=== PATIENT | female | born 1970 | race Caucasian/White ===

== ENCOUNTER 2017-03-31 11:02 | Emergency (ER) | payer BC ==
[2017-03-31 11:55] VITALS: BP 163/95
--- NOTE | 2017-03-31 12:29 | UC ---
Respiratory Complaint HPI - HPI Summary HPI Summary: 46 yo WF smoker c/o productive cough x 1 week no f/c but gradually worsening - History of Current Complaint Chief Complaint: UCGeneralIllness Stated Complaint: COUGH Time Seen by Provider: 03/31/17 11:46 Hx Obtained From: Patient Hx Last Menstrual Period: ENDOMETRIAL ABLATION Onset/Duration: Lasting Days, Lasting Weeks Timing: Constant Severity Initially: Moderate Severity Currently: Moderate Character: Cough: Productive, Sputum Description: - white Aggravating Factors: Deep Breaths Associated Signs And Symptoms: Positive: Negative. Negative: Dyspnea, Fever, Chills, Pleuritic Chest Pain - Allergies/Home Medications Allergies/Adverse Reactions: Allergies Allergy/AdvReac Type Severity Reaction Status Date / Time No Known Allergies Allergy Verified 03/31/17 11:48 PMH/Surg Hx/FS Hx/Imm Hx Previously Healthy: Yes Other History Of: Negative For: HIV, Hepatitis B, Hepatitis C - Surgical History Surgical History: Yes Surgery Procedure, Year, and Place: LUMBAR FUSION 2006 [facility]. eye surgery at age 15 for detached retina. BILAT SALPINGETOMY 2003 [facility] [place]. RIGHT OOPHERECTOMY [facility]. RIGHT hand surgery x2. Ablation - Family History Known Family History: Positive: Other - Pt denies family history of cardiac, renal disease. Pos colon cancer. Negative: Cardiac Disease, Renal Disease - Social History Alcohol Use: None Substance Use Type: None Substance Use Comment - Amount & Last Used: PT ON SUBOXONE Smoking Status (MU): Current Every Day Smoker Type: Cigarettes Amount Used/How Often: 1 ppd Length of Time of Smoking/Using Tobacco: 20 YRS Have You Smoked in the Last Year: Yes When Did the Patient Quit Smoking/Using Tobacco: 09/08 Review of Systems Constitutional: Negative Skin: Negative Eyes: Negative ENT: Negative Respiratory: Cough Cardiovascular: Negative Gastrointestinal: Negative Genitourinary: Negative Motor: Negative Neurovascular: Negative Musculoskeletal: Negative Neurological: Negative Psychological: Negative All Other Systems Reviewed And Are Negative: Yes Physical Exam Triage Information Reviewed: Yes Appearance: Well-Appearing Vital Signs: Initial Vital Signs Temp 36.9 C 03/31/17 11:50 Pulse 61 03/31/17 11:50 Resp 20 03/31/17 11:50 BP 163/95 03/31/17 11:50 Pulse Ox 97 03/31/17 11:50 Eye Exam: Normal ENT: Positive: Pharynx normal Dental Exam: Normal Neck exam: Normal Neck: Positive: 1 Respiratory: Positive: Rhonchi, Wheezing, Expiration, Inspiration Cardiovascular Exam: Normal Abdominal Exam: Normal Musculoskeletal Exam: Normal Neurological Exam: Normal Psychological Exam: Normal Skin Exam: Normal UC Diagnostic Evaluation - Laboratory O2 Sat by Pulse Oximetry: 97 Respiratory Course/Dx - Differential Dx/Diagnosis Provider Diagnoses: bronchitis Discharge - Discharge Plan Condition: Stable Disposition: HOME Prescriptions: Azithromyxin TRACE (NF) [Z-Trace (Zithromax) 250 mg tabs #6] 2 tab PO .TODAY, THEN 1 DAILY #6 tab Benzonatate CAP* [Tessalon 100 MG CAP*] 100 mg PO TID 7 Days #21 cap predniSONE TAB* [Deltasone TAB*] 10 mg PO DAILY 5 Days #5 tab Patient Education Materials: Acute Bronchitis (ED) Referrals: Ashley Martin MD [Primary Care Provider] - Additional Instructions: as tolerated
== END 2017-03-31 12:37 | disposition home or self-care (01) ==
LOC: UCEAST 11:02
DX: J40 Bronchitis, not specified as acute or chronic (principal); F17.210 Nicotine dependence, cigarettes, uncomplicated
CPT/HCPCS: 99212; G0463

== ENCOUNTER 2017-12-16 10:50 | Emergency (ER) | payer BC ==
[2017-12-16 12:06] VITALS: BP 156/93
--- NOTE | 2017-12-16 12:41 | UC ---
Respiratory Complaint HPI - HPI Summary HPI Summary: 47-year-old female presents with progressively worsening productive cough for yellow sputum over the past week. Associated with mild headache, nasal congestion and discharge. Denies fever, chills, ear pain, sore throat, chest pain, shortness of breath, abdominal pain, nausea, or vomiting. States she has a history of frequent bronchitis with reactive airway disease. Has needed prednisone and inhaler in the past. She is a one pack per day smoker for almost 30 years. - History of Current Complaint Chief Complaint: UCRespiratory Stated Complaint: SORE THROAT,COUGH,CONGESTION Time Seen by Provider: 12/16/17 12:16 Hx Obtained From: Patient Hx Last Menstrual Period: ENDOMETRIAL ABLATION ?: No Onset/Duration: Gradual Onset, Lasting Days - 7 Severity Initially: Mild Severity Currently: Moderate Pain Intensity: 2 Aggravating Factors: Recumbent Position Alleviating Factors: Nothing Associated Signs And Symptoms: Positive: URI, Nasal Congestion. Negative: Dyspnea, Fever, Chills, Pleuritic Chest Pain, Wheezing, Hemoptysis, Sinus Discomfort - Allergies/Home Medications Allergies/Adverse Reactions: Allergies Allergy/AdvReac Type Severity Reaction Status Date / Time No Known Allergies Allergy Verified 12/16/17 12:06 PMH/Surg Hx/FS Hx/Imm Hx Previously Healthy: Yes GI/ History: Gastroesophageal Reflux Psychological History: Anxiety, Depression Other Psychological History: substance abuse disorder Other History Of: Negative For: HIV, Hepatitis B, Hepatitis C - Surgical History Surgical History: Yes Surgery Procedure, Year, and Place: LUMBAR FUSION 2006 [facility]. eye surgery at age 15 for detached retina. BILAT [place] [facility] [place] RIGHT O[facility]CTOMY 2007 [facility]. RIGHT hand surgery x2. Ablation - Family History Known Family History: Positive: Other - Pt denies family history of cardiac, renal disease. Pos colon cancer. Negative: Cardiac Disease, Renal Disease Family History: Noncontributory - Social History Occupation: Employed Full-time Lives: With Family Alcohol Use: Rare Substance Use Type: None Substance Use Comment - Amount & Last Used: PT ON SUBOXONE Smoking Status (MU): Heavy Every Day Tobacco Smoker Type: Cigarettes Amount Used/How Often: 1 ppd Length of Time of Smoking/Using Tobacco: 20 YRS Have You Smoked in the Last Year: Yes When Did the Patient Quit Smoking/Using Tobacco: 09/08 Review of Systems Constitutional: Fatigue Skin: Negative Eyes: Negative ENT: Nasal Discharge Respiratory: Cough Cardiovascular: Negative Gastrointestinal: Negative Is Patient Immunocompromised?: No All Other Systems Reviewed And Are Negative: Yes Physical Exam Triage Information Reviewed: Yes Appearance: Well-Appearing, No Pain Distress, Well-Nourished Vital Signs: Initial Vital Signs Temp 97.0 F 12/16/17 12:03 Pulse 112 12/16/17 12:03 Resp 18 12/16/17 12:03 BP 156/93 12/16/17 12:03 Pulse Ox 98 12/16/17 12:03 Vital Signs Reviewed: Yes Eyes: Positive: Conjunctiva Clear. Negative: Discharge ENT: Positive: Pharyngeal erythema - Mild, Nasal congestion, Nasal drainage, Uvula midline. Negative: Tonsillar swelling, Tonsillar exudate, Sinus tenderness Neck: Positive: Supple, Nontender, No Lymphadenopathy Respiratory: Positive: Lungs clear, Normal breath sounds, No respiratory distress Cardiovascular: Positive: RRR, No Murmur Neurological: Positive: Alert Skin Exam: Normal UC Diagnostic Evaluation - Laboratory O2 Sat by Pulse Oximetry: 98 Respiratory Course/Dx - Course Course Of Treatment: 47 year old female, heavy smoker, with history of recurrent bronchitis with RAD presents with 1 week of prodcutive cough. Afebrile and her lungs were clear on exam however with her history have chosen to treat with azithromycin as well as symptomatic treatment. She is to f/u with her PCP within 2 weeks for recheck. - Differential Dx/Diagnosis Differential Diagnosis/HQI/PQRI: Bronchitis, Lower Resp Infection, Sinusitis Provider Diagnoses: Acute bronchitis Discharge - Sign-Out/Discharge Documenting (check all that apply): Patient Departure All imaging exams completed and their final reports reviewed: No Studies - Discharge Plan Condition: Stable Disposition: HOME Prescriptions: Azithromyxin TRACE (NF) [Z-Trace (Zithromax) 250 mg tabs #6] 2 tab PO .TODAY, THEN 1 DAILY #6 tab Benzonatate CAP* [Tessalon 100 MG CAP*] 100 mg PO TID PRN #30 cap PRN Reason: Cough Patient Education Materials: Acute Bronchitis (ED) Referrals: Ashley Martin MD [Primary Care Provider] - 2 Weeks () Additional Instructions: Start taking the Z-Trace according to directions. Use Tessalon Perles one Every 8 hours as needed for cough. Be sure you're getting plenty of fluids to avoid dehydration. Take acetaminophen (Tylenol) or ibuprofen (Advil, Motrin) according to directions as needed for any pain or fever. X It is advised that she stop smoking as this will worsen your symptoms. Your blood pressure in the office today was elevated. Follow-up with your primary care provider in 2 weeks or sooner if no improvement in symptoms. Seek immediate medical attention if you develop a persistent fever greater than 100.5 F despite taking acetaminophen or ibuprofen, develop chest pain, shortness of breath, or have any worsening of symptoms. - Billing Disposition and Condition Condition: STABLE Disposition: Home
== END 2017-12-16 13:02 | disposition home or self-care (01) ==
LOC: UCEAST 10:50
DX: J20.9 Acute bronchitis, unspecified (principal); F17.210 Nicotine dependence, cigarettes, uncomplicated
CPT/HCPCS: 99212; G0463

== ENCOUNTER 2018-11-02 10:31 | Emergency (ER) | payer BC ==
--- OUTSIDE RECORDS SUMMARY | 2018-11-02 10:56 | XMS REPORT | Continuity of Care Document ---
:1970 External Reference #:[id number] Author Name Ashley Felix MD Address [address] [place] [address] Care Team Providers Name Role Phone Ashley Felix MD Care Team Information Ultrasound Spec Unavailable Payers Date Identification Numbers Payment Provider Subscriber Effective: 2012 Policy Number: [id number] [employer] Candis Jones PayID: [id number] [address] [address] [place] [address] Problems Active Problems Provider Date Peptic reflux disease Ashley Felix MD Onset: 11/23/2015 Moderate recurrent major depression Ashley Felix MD Onset: 07/13/2016 Opioid dependence in remission Ashley Felix MD Onset: 07/13/2016 Social History Type Date Description Comments Sex Unknown 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 Tobacco Use Start: Unknown Patient is a current smoker, smokes every day Smoking Status Reviewed: 08/08/17 Patient is a current smoker, smokes every day Allergies, Adverse Reactions, Alerts Description No Known Drug Allergies Medications Active Medications SIG Qnty Indications Ordering Date Provider Bupropion take 1 tablet by 30tabs F33.1 Isidro, 06/04/2018 Hydrochloride ER (XL) mouth once daily Ashley Velez MD 300mg Tablets ER 24HR Amlodipine Besylate Take 1 Tablet By 30tabs I10 Isidro, 05/14/2018 5mg Mouth Once Daily Ashley Velez MD Tablets Escitalopram Oxalate take 1 tablet by 30tabs F33.1 Isidro, 04/10/2018 mouth once daily Ashley Velez MD 20mg Tablets Ventolin HFA inhale 2 puffs by 8gm R05 Isidro, 11/13/2017 mouth 4 times Ashley Velez MD 108(90Base) mcg/Act daily as needed Aerosol Omeprazole 1 by mouth every 30caps K21.0 [facility], 02/14/2017 20mg day Ashley Velez MD Capsules DR Sumatriptan Succinate Take 1 Tablet By 9tabs R51 [facility], 02/14/2017 Mouth AT Earliest Ashley Velez MD 50mg Tablets Headache Onset May Repeat 1 More After 2 Hours Narcan as needed 2units F11.21 [facility], 07/13/2016 4mg/0.1ML Liquid intranasal for Ashley Velez MD emergency overdose only Tizanidine HCL take 1 to 2 90tabs M54.5 [facility], 07/13/2016 2mg tablets by mouth Ashley Velez MD Tablets three times a day as needed Chantix Continuing use as directed on 56tabs F17.210 [facility], 02/29/2016 Month Emeterio package Ashley Velez MD 1mg Tablets Suboxone 1 sl twice a day 60units F11.21 Yessica Willis 11/23/2015 8-2mg Film egnia: 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, 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 Medications Azithromycin 2 tabs day one and 6tabs J18.0 [facility], 06/04/2018 - 250mg 1 tab daily till Ashley Velez MD 07/03/2018 Tablets gone Prednisone 2 every in the 10tabs J18.0 [facility], 06/04/2018 - 20mg Tablets morning x 5 d Ashley Velez MD 07/03/2018 Benzonatate 1 by mouth three 14caps 18.0 [facility], 06/04/2018 - 100mg times a day as Ashley Velez MD 07/03/2018 Capsules needed cough Work Note pl excuse from J18.0 [facility], 06/04/2018 - work 06/05, 06/06/18 Ashley Velez MD 07/03/2018 Prednisone 2 every in the 10tabs R05 [facility], 11/13/2017 - 20mg Tablets morning x 5 d Ashley Velez MD 02/06/2018 Amoxicillin 1 by mouth twice a 28tabs J01.00 Yessica Willis 07/05/2017 - 875mg day C, RN MS [employer] SUPPORT TE[employer] 08/04/2017 Tablets Alprazolam 1/2-2 three times 10tabs Isidro, 05/22/2017 - 0.25mg a day as needed Ashley Velez MD 07/03/2018 Tablets anxiety for flying Nystatin swish and swallow 60ml Isidro, 05/05/2017 - [id number] 1 teapsoonful (5 Ashley Velez MD 08/08/2017 Suspension mls) two times a day Prednisone 4tabs qam x 3 days 30tabs R0Trav Felix, 04/28/2017 - 10mg Tablets then 3 po qam x 3d Ashley Velez MD 05/05/2017 then 2 po qam x 3d then 1 po qam x 3 d Benzonatate 1 by mouth three 30caps Trav Felix, 04/28/2017 - 100mg times a day as Ashley Velez MD 08/08/2017 Capsules needed cough Proair Respiclick 2 p four times a 1units Trav Felix, 04/28/2017 - day as needed Ashley Velez MD 11/13/2017 108(90Base) mcg/Act Aerosol Azithromycin 2 tabs day one and 6tabs Isidro, 11/18/2016 - 250mg 1 tab daily till Ashley Velez MD 02/14/2017 Tablets gone Bupropion HCL ER (XL) take 1 tablet by 30tabs F33.1 Isidro, 08/02/2016 - mouth once daily Ashley Velez MD 06/04/2018 300mg Tablets ER 24HR Baclofen 1-2 po qhs 30tabs M54.5 Isidro, 04/25/2016 - 10mg Tablets Ashley Velez MD 07/13/2016 Nystatin 5 ml swish and 60ml Isidro, 02/12/2016 - [id number]/ML swallow qid x 1 wk Ashley Velez MD 04/13/2016 Suspension Azithromycin z-pack x 5 days 5tabs J02.9 Isidro, 02/10/2016 - 250mg Ashley Velez MD 04/13/2016 Tablets Nystatin B37.0 Isidro, 02/08/2016 - [id number]/ML Ashley Velez MD 02/12/2016 Suspension Ciprofloxacin HCL 1 by mouth twice a 14tabs Isidro, 12/03/2015 - 500mg day Ashley Velez MD 02/08/2016 Tablets Wellbutrin XL 1 by mouth every 30tabs F33.1 Isidro 11/23/2015 - 300mg day Ashley Velez MD 08/02/2016 Tablets ER 24HR Omeprazole 1 by mouth every 30caps K21.0 [facility], 11/23/2015 - 40mg day Ashley Velez MD 02/14/[address] Pham 1 by mouth every 30tabs F33.1 [facility], 11/23/2015 - 20mg Tablets day Ashley Velez MD 04/10/2018 Medications Administered in Office Medication SIG Qnty Indications Ordering Provider Date PPD Injection Faustina Loera PA 02/10/2016 Immunizations CPT Code Status Date Vaccine Lot # [id number] Given 02/06/2018 Tdap (Adacel) Ages 7 And Above Only [id number] Given 12/14/2017 Influenza Vac, Quadrivalent, Split, 0.5mL Dosage, Im Use 49809 Given 12/10/2017 Influenza Vac, Quadrivalent, Split, 0.5mL Dosage, Im Use 66300 Given 12/19/2016 Influenza Vac, Quadrivalent, Split, 0.5mL Dosage, Im Use 77911 Given 02/07/2016 Influenza Vac, Quadrivalent, Split, 0.5mL Dosage, Im Use 01124 Given 03/27/2007 Tetanus And Diptheria Toxoids For Adult Use-preservative free Vital Signs Date Vital Result Comment 10/15/2018 3:49pm Weight 160.00 lb Heart Rate 76 /min BP Systolic 130 mmHg BP Diastolic 78 mmHg Height 66 inches 5'6" BMI (Body Mass Index) 25.8 kg/m2 07/03/2018 3:52pm Weight 164.00 lb Heart Rate 64 /min BP Systolic 122 mmHg BP Diastolic 80 mmHg Height 66 inches 5'6" BMI (Body Mass Index) 26.5 kg/m2 06/04/2018 3:41pm Body Temperature 98.6 F Weight 162.00 lb Heart Rate 72 /min BP Systolic 142 mmHg BP Diastolic 84 mmHg Height 66 inches 5'6" BMI (Body Mass Index) 26.1 kg/m2 05/14/2018 10:36am Weight 158.00 lb Heart Rate 84 /min BP Systolic 168 mmHg Reg Cuff BP Diastolic 104 mmHg Reg Cuff BP Systolic Recheck 154 mmHg LG Cuff BP Diastolic Recheck 96 mmHg LG Cuff Height 66 inches 5'6" BMI (Body Mass Index) 25.5 kg/m2 02/06/2018 3:59pm Weight 165.00 lb Heart Rate 84 /min BP Systolic 144 mmHg BP Diastolic 94 mmHg BP Systolic Recheck 134 mmHg BP Diastolic Recheck 88 mmHg Height 66 inches 5'6" BMI (Body Mass Index) 26.6 kg/m2 11/13/2017 3:19pm Body Temperature 99.2 F Weight 177.00 lb Heart Rate 60 /min BP Systolic 128 mmHg BP Diastolic 72 mmHg Height 66 inches 5'6" BMI (Body Mass Index) 28.6 kg/m2 08/08/2017 4:07pm Weight 175.25 lb Heart Rate 59 /min BP Systolic 157 mmHg BP Diastolic 84 mmHg BP Systolic Recheck 140 mmHg BP Diastolic Recheck 78 mmHg Height 66 inches 5'6" BMI (Body Mass Index) 28.3 kg/m2 07/05/2017 4:05pm Weight 180.12 lb Heart Rate 57 /min BP Systolic 142 mmHg BP Diastolic 84 mmHg Height 66 inches 5'6" BMI (Body Mass Index) 29.1 kg/m2 04/28/2017 8:19am Weight 172.00 lb Heart Rate 60 /min BP Systolic 130 mmHg BP Diastolic 80 mmHg Height 66 inches 5'6" BMI (Body Mass Index) 27.8 kg/m2 02/14/2017 3:20pm Weight 172.00 lb Heart Rate 60 /min BP Systolic 126 mmHg BP Diastolic 66 mmHg Height 66 inches 5'6" BMI (Body Mass Index) 27.8 kg/m2 11/14/2016 3:27pm Weight 170.00 lb Heart Rate 80 /min BP Systolic 150 mmHg BP Diastolic 96 mmHg BP Systolic Recheck 138 mmHg BP Diastolic Recheck 90 mmHg Height 66 inches 5'6" BMI (Body Mass Index) 27.4 kg/m2 09/02/2016 1:15pm Weight 171.00 lb Heart Rate 76 /min BP Systolic 148 mmHg BP Diastolic 88 mmHg Height 66 inches 5'6" BMI (Body Mass Index) 27.6 kg/m2 07/13/2016 9:24am Weight 168.00 lb Heart Rate 68 /min BP Systolic 140 mmHg BP Diastolic 84 mmHg Height 66 inches 5'6" BMI (Body Mass Index) 27.1 kg/m2 04/13/2016 9:12am Weight 162.00 lb Heart Rate 68 /min BP Systolic 120 mmHg BP Diastolic 72 mmHg Height 66 inches 5'6" BMI (Body Mass Index) 26.1 kg/m2 02/10/2016 2:21pm Body Temperature 97.9 F Weight 168.00 lb Heart Rate 80 /min BP Systolic 116 mmHg BP Diastolic 70 mmHg Height 66 inches 5'6" BMI (Body Mass Index) 27.1 kg/m2 02/08/2016 9:44am Weight 167.00 lb Heart Rate 68 /min BP Systolic 108 mmHg BP Diastolic 66 mmHg Height 66 inches 5'6" BMI (Body Mass Index) 27.0 kg/m2 11/23/2015 4:01pm Weight 178.00 lb Heart Rate 64 /min BP Systolic 128 mmHg BP Diastolic 80 mmHg Height 66 inches 5'6" BMI (Body Mass Index) 28.7 kg/m2 Results Test Date Facility Test Result H/L Range Note Laboratory test 06/04/2018 Done In [facility] 1 Rapid Flu NEG FOR A finding Test (In AND B House) Basic (BMP) 05/14/2018 [facility] Sodium 141 mmol/L 135-146 1, 2 Potassium 3.8 mmol/L 3.5-5.2 Chloride# 107 mmol/L 97-110 3 Carbon Dioxide 26 mmol/L 24-34 Glucose 98 mg/dL 70-105 BUN 16 mg/dL 6-26 Creatinine 1.1 mg/dL 0.5-1.4 Calcium 9.5 mg/dL 8.5-10.2 Non Nevaeh Egfr 53 Low >60 4 Nevaeh Egfr >60 >60 5 Anion Gap 8 mmol/L 5-15 6 Lipid Treatment 05/14/2018 [facility] Cholesterol 174 mg/dL 50-199 Triglycerides 78 mg/dL 30-200 HDL 51 mg/dL 35-85 7 Chol/ HDL Ratio 3.4 ratio Low 3.7-5.6 VLDL 16 mg/dL 2-29 LDL (Calc) 107 mg/dL High 20-99 8 Alt 17 U/L 3-42 Ast 19 U/L 8-42 Drugs Of 02/06/2018 [facility] Amphetamines,Urine NEGATIVE <1000 ng/mL Abuse,Urine-FCMG Barbiturates,Urine NEGATIVE <200 ng/mL Benzodiazepines, Urine NEGATIVE <200 ng/mL Bupernorphrine/Norbu,Urine POSITIVE Abnormal <10 ng/mL Cocaine Metabolites,Urine NEGATIVE <300 ng/mL Methadone,Urine NEGATIVE <300 ng/mL Opiates,Urine NEGATIVE <300 ng/mL Oxycodone,Urine NEGATIVE <100 ng/mL Phencyclidine,Urine NEGATIVE <25 ng/mL Cannabinoids,Urine NEGATIVE <50 ng/mL Drugs Of 11/13/2017 [facility] Amphetamines,Urine NEGATIVE <1000 ng/mL Abuse,Urine-FCMG Barbiturates,Urine NEGATIVE <200 ng/mL Benzodiazepines, Urine NEGATIVE <200 ng/mL Bupernorphrine/Norbu,Urine POSITIVE Abnormal <10 ng/mL Cocaine Metabolites,Urine NEGATIVE <300 ng/mL Methadone,Urine NEGATIVE <300 ng/mL Opiates,Urine NEGATIVE <300 ng/mL Oxycodone,Urine NEGATIVE <100 ng/mL Phencyclidine,Urine NEGATIVE <25 ng/mL Cannabinoids,Urine NEGATIVE <50 ng/mL CBC With Auto Diff 04/28/2017 [facility] WBC 15.5 K/uL High 4.1-11.0 RBC 3.89 M/uL Low 4.00-5.40 Hemoglobin 12.4 gm/dL 12.0-16.0 Hematocrit 36.9 % 36.0-47.0 MCV 95.0 fL 80.0-97.0 MCH 32.0 pg 27.0-32.0 MCHC 33.7 g/dL 32.0-36.0 RDW 13.3 % 11.5-14.5 PLT Count 187 K/ul 140-400 MPV 10.3 FL 7.1-10.7 Neutrophil 81.2 % High 35.0-75.0 Lymphocyte 8.4 % Low 16.0-52.0 Monocyte 8.3 % 2.0-10.0 Eosinophil 1.6 % 0.0-5.0 Basophil 0.5 % 0.0-4.0 Abs Neutrophils 12.6 K/uL High 2.1-8.0 Abs Lymphocytes 1.3 K/uL 0.8-5.5 Abs Monocytes 1.3 K/uL High 0.1-1.0 Abs Eosinophils 0.2 K/uL 0.0-0.5 Abs Basophils 0.1 K/uL 0.0-0.3 Iron Panel 04/28/2017 [facility] Iron, Total 16 g/dL Low 50-170 Transferrin 223.0 mg/dL 203.0-362.0 Tibc (calc) 312 g/dL 261-478 % Iron Saturation 5.1 % Low 13.0-45.0 Drugs Of 04/28/2017 [facility] Amphetamines,Urine NEGATIVE <1000 ng/mL Abuse,Urine-FCMG Barbiturates,Urine NEGATIVE <200 ng/mL Benzodiazepines, Urine NEGATIVE <200 ng/mL Bupernorphrine/Norbu,Urine POSITIVE Abnormal <10 ng/mL Cocaine Metabolites,Urine NEGATIVE <300 ng/mL Methadone,Urine NEGATIVE <300 ng/mL Opiates,Urine NEGATIVE <300 ng/mL Oxycodone,Urine NEGATIVE <100 ng/mL Phencyclidine,Urine NEGATIVE <25 ng/mL Cannabinoids,Urine NEGATIVE <50 ng/mL Drugs Of 11/15/2016 [facility] Amphetamines,Urine Negative <1000 ng/mL Abuse,Urine-FCMG Barbiturates,Urine Negative <200 ng/mL Benzodiazepines, Urine Negative <200 ng/mL Bupernorphrine/Norbu,Urine Positive Abnormal <10 ng/mL Cocaine Metabolites,Urine Negative <300 ng/mL Methadone,Urine Negative <300 ng/mL Opiates,Urine Negative <300 ng/mL Oxycodone,Urine Negative <100 ng/mL Phencyclidine,Urine Negative <25 ng/mL Cannabinoids,Urine Negative <50 ng/mL Drugs Of 07/13/2016 [facility] Amphetamines,Urine Negative <1000 ng/mL Abuse,Urine-FCMG Barbiturates,Urine Negative <200 ng/mL Benzodiazepines, Urine Negative <200 ng/mL Bupernorphrine/Norbu,Urine Positive <10 ng/mL Cocaine Metabolites,Urine Negative <300 ng/mL Methadone,Urine Negative <300 ng/mL Opiates,Urine Negative <300 ng/mL Oxycodone,Urine Negative <100 ng/mL Phencyclidine,Urine Negative <25 ng/mL Cannabinoids,Urine Negative <50 ng/mL Comprehensive Metabolic (CMP) 07/13/2016 [facility] Sodium 142 mmol/L 135- 146 9 Potassium 3.6 mmol/L 3.5-5.2 Chloride# 109 mmol/L 97-110 10 Carbon Dioxide 23 mmol/L Low 24-34 Glucose 87 mg/dL 70-105 BUN 15 mg/dL 6-26 Creatinine 1.3 mg/dL 0.5-1.4 Calcium 9.1 mg/dL 8.5-10.2 Total Protein 6.2 g/dL 6.0-8.0 Albumin 3.9 g/dL 3.6-4.9 Globulin 2.3 g/dL 2.0-3.5 A/G Ratio 1.7 Ratio 1.0-2.2 Total Bilirubin 0.3 mg/dL 0.1-1.3 Alkaline Phosphatase 72 U/L 24-140 Alt 15 U/L 3-42 Ast 19 U/L 8-42 Nevaeh Egfr 56 Low >60 11 Non Nevaeh Egfr 46 Low >60 12 Anion Gap 14 mmol/L 7-16 13 Iron Panel 07/13/2016 [facility] Iron, Total 6 g/dL Low 50-170 Transferrin 200.0 mg/dL Low 203.0-362.0 Tibc (calc) 280 g/dL 261-478 % Iron Saturation 2.1 % Low 13.0-45.0 CBC With Auto Diff 07/13/2016 [facility] WBC 16.6 K/uL High 4.1-11.0 RBC 3.95 M/uL Low 4.00-5.40 Hemoglobin 11.9 gm/dL Low 12.0-16.0 Hematocrit 36.6 % 36.0-47.0 MCV 92.6 fL 80.0-97.0 MCH 30.2 pg 27.0-32.0 MCHC 32.6 g/dL 32.0-36.0 RDW 15.0 % High 11.5-14.5 PLT Count 150 K/ul 140-400 Neutrophil 84.4 % High 35.0-75.0 Lymphocyte 7.2 % Low 16.0-52.0 Monocyte 7.4 % 2.0-10.0 Eosinophil 0.6 % 0.0-5.0 Basophil 0.4 % 0.0-4.0 Abs Neutrophils 14.0 K/uL High 2.1-8.0 Abs Lymphocytes 1.2 K/uL 0.8-5.5 Abs Monocytes 1.2 K/uL High 0.1-1.0 Abs Eosinophils 0.1 K/uL 0.0-0.5 Abs Basophils 0.1 K/uL 0.0-0.3 Comprehensive Metabolic (CMP) 04/13/2016 [facility] Sodium 138 mmol/L 134- 142 Potassium 3.0 mmol/L Low 3.5-5.2 Chloride 106 mmol/L 97-109 Carbon Dioxide 27 mmol/L 24-34 Glucose 89 mg/dL 70-105 BUN 10 mg/dL 6-26 Creatinine 1.2 mg/dL 0.5-1.4 Calcium 8.8 mg/dL 8.5-10.2 Total Protein 6.4 g/dL 6.0-8.0 Albumin 3.6 g/dL 3.6-4.9 Globulin 2.8 g/dL 2.0-3.5 A/G Ratio 1.3 Ratio 1.0-2.2 Total Bilirubin 0.3 mg/dL 0.1-1.3 Alkaline Phosphatase 69 U/L 24-140 Alt 12 U/L 3-42 Ast 13 U/L 8-42 Anion Gap 8 mmol/L 6-14 Nevaeh Egfr 58 Low >60 14 Non Nevaeh Egfr 48 Low >60 15 Iron Panel 04/13/2016 [facility] Iron, Total 1 g/dL Low 50-170 Transferrin 160.6 mg/dL Low 203.0-362.0 Tibc (calc) 225 g/dL Low 261-478 % Iron Saturation 0.4 % Low 13.0-45.0 Laboratory test finding 04/13/2016 [facility] Ferritin 125.3 ng/ml 11.0- 306.0 CBC With Auto Diff 04/13/2016 [facility] WBC 12.8 K/uL High 4.1-11.0 RBC 3.73 M/uL Low 4.00-5.40 Hemoglobin 10.8 gm/dL Low 12.0-16.0 Hematocrit 33.5 % Low 36.0-47.0 MCV 90.0 fL 80.0-97.0 MCH 28.9 pg 27.0-32.0 MCHC 32.1 g/dL 32.0-36.0 RDW 19.8 % High 11.5-14.5 PLT Count 200 K/ul 140-400 Neutrophil 71.6 % 35.0-75.0 Lymphocyte 16.4 % 16.0-52.0 Monocyte 9.6 % 2.0-10.0 Eosinophil 1.6 % 0.0-5.0 Basophil 0.8 % 0.0-4.0 Abs Neutrophils 9.2 K/uL High 2.1-8.0 Abs Lymphocytes 2.1 K/uL 0.8-5.5 Abs Monocytes 1.2 K/uL High 0.1-1.0 Abs Eosinophils 0.2 K/uL 0.0-0.5 Abs Basophils 0.1 K/uL 0.0-0.3 Drugs Of 02/08/2016 [facility] Amphetamines,Urine Negative <1000 ng/mL Abuse,Urine-FCMG Barbiturates,Urine Negative <200 ng/mL Benzodiazepines, Urine Negative <200 ng/mL Bupernorphrine/Norbu,Urine Positive <10 ng/mL Cocaine Metabolites,Urine Negative <300 ng/mL Methadone,Urine Negative <300 ng/mL Opiates,Urine Negative <300 ng/mL Oxycodone,Urine Negative <100 ng/mL Phencyclidine,Urine Negative <25 ng/mL Cannabinoids,Urine Negative <50 ng/mL Laboratory test finding 02/08/2016 [facility] Vitamin B12 >1500 pg/mL High 180-914 Iron Panel 02/08/2016 [facility] Iron, Total 5 g/dL Low 50-170 Transferrin 118.4 mg/dL Low 203.0-362.0 Tibc (calc) 166 g/dL Low 261-478 % Iron Saturation 3.0 % Low 13.0-45.0 Manual Differential 02/08/2016 [facility] Neutrophils 89 % High 35-75 Lymphocytes 9 % Low 16-52 Monocytes 1 % 0-8 Eosinophils 1 % 0-5 Basophils 0 % 0-4 Platelet Estimate Slighty Increase <SEE NOTE> Abnormal Normal 16 RBC Morphology Abnormal Abnormal Normal Anisocytosis 1+ Abnormal None Seen Macrocytosis 1+ Abnormal None Seen Microcytosis 1+ Abnormal None Seen Hypochromia 1+ Abnormal None Seen Abs Neutrophils# 23.8 K/ul High 1.8-7.7 Abs Lymphocytes# 2.4 K/ul 1.2-4.8 Abs Monocytes# 0.3 K/ul 0.0-0.8 Abs Eosinophils# 0.3 K/ul 0.0-0.5 Abs Basophils# 0.0 K/ul 0.0-0.3 Laboratory test finding 02/08/2016 [facility] TSH 0.91 uIU/mL 0.35-4.94 Vit D,25 Hydroxy 50 ng/mL 31-100 Lipid 02/08/2016 [facility] Cholesterol 116 mg/dL 50-199 Triglycerides 132 mg/dL 30-200 HDL 36 mg/dL 35-85 17 Chol/ HDL Ratio 3.2 ratio Low 3.7-5.6 VLDL 26 mg/dL 2-29 LDL (Calc) 54 mg/dL 20-99 18 Comprehensive Metabolic (CMP) 02/08/2016 [facility] Sodium 135 mmol/L 134- 142 Potassium 3.6 mmol/L 3.5-5.2 Chloride 105 mmol/L 97-109 Carbon Dioxide 19 mmol/L Low 24-34 Glucose 93 mg/dL 70-105 BUN 20 mg/dL 6-26 Creatinine 1.4 mg/dL 0.5-1.4 Calcium 9.0 mg/dL 8.5-10.2 Total Protein 6.4 g/dL 6.0-8.0 Albumin 3.1 g/dL Low 3.6-4.9 Globulin 3.3 g/dL 2.0-3.5 A/G Ratio 0.9 Ratio Low 1.0-2.2 Total Bilirubin 0.4 mg/dL 0.1-1.3 Alkaline Phosphatase 139 U/L 24-140 Alt 11 U/L 3-42 Ast 10 U/L 8-42 Anion Gap 15 mmol/L High 6-14 Nevaeh Egfr 48 Low >60 19 Non Nevaeh Egfr 39 Low >60 20 CBC With Auto Diff 02/08/2016 [facility] WBC 26.7 Results addie <SEE High 4.1- 11.0 21 NOTE> K/uL RBC 2.66 Results addie <SEE NOTE> M/uL Low 4.00-5.40 22 Hemoglobin 7.6 Results veri <SEE NOTE> gm/dL Low 12.0-16.0 23 Hematocrit 23.6 Results addie <SEE NOTE> % Low 36.0-47.0 24 MCV 89.0 fL 80.0-97.0 MCH 28.6 pg 27.0-32.0 MCHC 32.1 g/dL 32.0-36.0 RDW 18.7 % High 11.5-14.5 PLT Count 485 Results veri <SEE NOTE> K/ul High 140-400 25 1 This sample is drawn by:MARICHUY. 2 Updated reference range on new analyzer 3 Updated reference range on new analyzer 4 Concerning GFR Guidelines: Normal function or mild renal disease, if clinically at risk: >/=60 mL/min Moderately decreased: 30-59 Severely decreased: 15-29 Renal failure: <15 Glomerular Filtration Rate (GFR) is estimated based on the MDRD equation, which assumes a steady state for creatinine as recommended by the National Kidney Disease Education Program in conjunction with the National Institutes of Health and the National Kidney Foundation. Clinical conditions in which it may be necessary to measure GFR by using clearance methods include extremes of age and body size, severe malnutrition or obesity, diseases of skeletal muscle, paraplegia or quadriplegia, vegetarian diet, rapidly changing kidney function, and calculation of the dose of potentially toxic drugs that are excreted by the kidneys. 5 Concerning GFR Guidelines for Americans: Normal function or mild renal disease, if clinically at risk: >/=60 mL/min Moderately decreased: 30-59 Severely decreased: 15-29 Renal failure: <15 6 Updated Reference Range 7 Per NCEP ATP III Guidelines: Results lower than 40 mg/dL are suggestive of increased risk for coronary artery disease. Results > or=to 60 mg/dL are considered a negative risk factor. 8 Per NCEP ATP III Guidelines: Normal Population <130 Patients with medical conditions: CHD/DM Optimal: <100 Borderline high: 130-159 High: 160-189 Very high: >189 9 Updated reference range on new analyzer 10 Updated reference range on new analyzer 11 Concerning GFR Guidelines for Americans: Normal function or mild renal disease, if clinically at risk: >/=60 mL/min Moderately decreased: 30-59 Severely decreased: 15-29 Renal failure: <15 12 Concerning GFR Guidelines: Normal function or mild renal disease, if clinically at risk: >/=60 mL/min Moderately decreased: 30-59 Severely decreased: 15-29 Renal failure: <15 Glomerular Filtration Rate (GFR) is estimated based on the MDRD equation, which assumes a steady state for creatinine as recommended by the National Kidney Disease Education Program in conjunction with the National Institutes of Health and the National Kidney Foundation. Clinical conditions in which it may be necessary to measure GFR by using clearance methods include extremes of age and body size, severe malnutrition or obesity, diseases of skeletal muscle, paraplegia or quadriplegia, vegetarian diet, rapidly changing kidney function, and calculation of the dose of potentially toxic drugs that are excreted by the kidneys. 13 Updated reference range on new analyzer 14 Concerning GFR Guidelines for Americans: Normal function or mild renal disease, if clinically at risk: >/=60 mL/min Moderately decreased: 30-59 Severely decreased: 15-29 Renal failure: <15 15 Concerning GFR Guidelines: Normal function or mild renal disease, if clinically at risk: >/=60 mL/min Moderately decreased: 30-59 Severely decreased: 15-29 Renal failure: <15 Glomerular Filtration Rate (GFR) is estimated based on the MDRD equation, which assumes a steady state for creatinine as recommended by the National Kidney Disease Education Program in conjunction with the National Institutes of Health and the National Kidney Foundation. Clinical conditions in which it may be necessary to measure GFR by using clearance methods include extremes of age and body size, severe malnutrition or obesity, diseases of skeletal muscle, paraplegia or quadriplegia, vegetarian diet, rapidly changing kidney function, and calculation of the dose of potentially toxic drugs that are excreted by the kidneys. 16 Slighty Increased 17 Per NCEP ATP III Guidelines: Results lower than 40 mg/dL are suggestive of increased risk for coronary artery disease. Results > or=to 60 mg/dL are considered a negative risk factor. 18 Per NCEP ATP III Guidelines: Normal Population <130 Patients with medical conditions: CHD/DM Optimal: <100 Borderline high: 130-159 High: 160-189 Very high: >189 19 Concerning GFR Guidelines for Americans: Normal function or mild renal disease, if clinically at risk: >/=60 mL/min Moderately decreased: 30-59 Severely decreased: 15-29 Renal failure: <15 20 Concerning GFR Guidelines: Normal function or mild renal disease, if clinically at risk: >/=60 mL/min Moderately decreased: 30-59 Severely decreased: 15-29 Renal failure: <15 Glomerular Filtration Rate (GFR) is estimated based on the MDRD equation, which assumes a steady state for creatinine as recommended by the National Kidney Disease Education Program in conjunction with the National Institutes of Health and the National Kidney Foundation. Clinical conditions in which it may be necessary to measure GFR by using clearance methods include extremes of age and body size, severe malnutrition or obesity, diseases of skeletal muscle, paraplegia or quadriplegia, vegetarian diet, rapidly changing kidney function, and calculation of the dose of potentially toxic drugs that are excreted by the kidneys. 21 26.7 Results verified by repeat analysis 22 2.66 Results verified by repeat analysis 23 7.6 Results verified by repeat analysis 24 23.6 Results verified by repeat analysis 25 485 Results verified by repeat analysis Procedures Date Code Description Status 05/14/2018 54007 Electrocardiogram Complete Completed 04/12/2018 35577 ECHO Transthoracis 2D W Spectral Doppler Completed 08/15/2017 [id number] Mammogram Completed 04/28/2017 19399 ECHO Transthoracis 2D W Spectral Doppler Completed 02/14/2017 00164 Electrocardiogram Complete Completed 08/08/2016 [id number] Mammogram Completed Encounters Type Date Location Provider Dx Diagnosis Office Visit 07/03/2018 Ashley Knedrick I10 Essential (primary) 3:45p MD [facility] hypertension F11.21 Opioid dependence, in remission Z68.26 Body mass index (BMI) 26.0-26.9, adult Office Visit 06/04/2018 3:45p Ashley Kendrick J18.0 Bronchopneumonia, MD [facility] unspecified organism Z68.26 Body mass index (BMI) 26.0-26.9, adult Office Visit 05/14/2018 10:15a Ashley Kendrick Z00.01 Encounter for MD Rosie general adult medical exam w abnormal findings I10 Essential (primary) hypertension F11.21 Opioid dependence, in remission F33.1 Major depressive disorder, recurrent, moderate K21.0 Gastro-esophageal reflux disease with esophagitis F17.210 Nicotine dependence, cigarettes, uncomplicated Z12.31 Encntr screen mammogram for malignant neoplasm of breast F43.0 Acute stress reaction Z68.25 Body mass index (BMI) 25.0-25.9, adult Office Visit 02/06/2018 3:45p Ashley Kendrick F11.21 Opioid dependence, in MD Rosie remission F33.1 Major depressive disorder, recurrent, moderate K21.0 Gastro-esophageal reflux disease with esophagitis R03.0 Elevated blood-pressure reading, w/o diagnosis of htn Z23 Encounter for immunization Z68.26 Body mass index (BMI) 26.0-26.9, adult Office Visit 11/13/2017 3:15p Ashley Kendrick F11.21 Opioid dependence, in MD Rosie remission F33.1 Major depressive disorder, recurrent, moderate R05 Cough D48.5 Neoplasm of uncertain behavior of skin Z68.28 Body mass index (BMI) 28.0-28.9, adult Office Visit 08/08/2017 3:45p Ashley Kendrick F11.21 Opioid dependence, in MD Rosie remission F33.1 Major depressive disorder, recurrent, moderate K21.0 Gastro-esophageal reflux disease with esophagitis F17.210 Nicotine dependence, cigarettes, uncomplicated R03.0 Elevated blood-pressure reading, w/o diagnosis of htn M54.5 Low back pain R51 Headache Z68.28 Body mass index (BMI) 28.0-28.9, adult Office Visit 07/05/2017 3:40p Yessica Danielson, 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, 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 B02.9 Zoster without complications Z68.29 Body mass index (BMI) 29.0-29.9, adult Office Visit 04/28/2017 8:15a Ashley Kendrick F11.21 Opioid dependence, in MD Rosie remission F33.1 Major depressive disorder, recurrent, moderate K21.0 Gastro-esophageal reflux disease with esophagitis R01.1 Cardiac murmur, unspecified R05 Cough D50.9 Iron deficiency anemia, unspecified Office Visit 02/14/2017 3:00p Ashley Kendrick Z00.00 Encntr for general MD Rosie adult medical exam w/o abnormal findings F11.21 Opioid dependence, in remission F33.1 Major depressive disorder, recurrent, moderate F17.210 Nicotine dependence, cigarettes, uncomplicated K21.0 Gastro-esophageal reflux disease with esophagitis Z12.31 Encntr screen mammogram for malignant neoplasm of breast M54.5 Low back pain D50.9 Iron deficiency anemia, unspecified R51 Headache R09.89 Oth symptoms and signs involving the circ and resp systems R01.1 Cardiac murmur, unspecified Office Visit 11/14/2016 3:15p Ashley Kendrick F33.1 Mk Velez MD disorder, recurrent, moderate F11.21 Opioid dependence, in remission F17.210 Nicotine dependence, cigarettes, uncomplicated R03.0 Elevated blood-pressure reading, w/o diagnosis of htn Office Visit 09/02/2016 1:00p Ashley Kendrick MD M54.5 Low back pain F11.21 Opioid dependence, in remission A41.51 Sepsis due to Escherichia coli [E. coli] F33.1 Major depressive disorder, recurrent, moderate K21.0 Gastro-esophageal reflux disease with esophagitis D50.9 Iron deficiency anemia, unspecified Office Visit 07/13/2016 8:45a Ashley Kendrick F33.1 Major depressive MD Rosie disorder, recurrent, moderate F11.21 Opioid dependence, in remission F17.210 Nicotine dependence, cigarettes, uncomplicated D50.9 Iron deficiency anemia, unspecified K21.0 Gastro-esophageal reflux disease with esophagitis M54.5 Low back pain E87.6 Hypokalemia Office Visit 04/13/2016 9:00a Ashley Kendrick F33.1 Major depressive MD Rosie disorder, recurrent, moderate F11.21 Opioid dependence, in remission F17.210 Nicotine dependence, cigarettes, uncomplicated D50.9 Iron deficiency anemia, unspecified D72.829 Elevated white blood cell count, unspecified R63.4 Abnormal weight loss Office Visit 02/10/2016 2:40p Faustina Scherer PA J02.9 Acute pharyngitis, unspecified R63.4 Abnormal weight loss Z23 Encounter for immunization Z11.1 Encounter for screening for respiratory tuberculosis Office Visit 02/08/2016 9:30a Ashley Kendrick Z00.00 Encntr for general MD Rosie adult medical exam w/o abnormal findings F11.21 Opioid dependence, in remission F33.1 Major depressive disorder, recurrent, moderate K21.0 Gastro-esophageal reflux disease with esophagitis F17.210 Nicotine dependence, cigarettes, uncomplicated M54.2 Cervicalgia Z12.31 Encntr screen mammogram for malignant neoplasm of breast Z13.21 Encounter for screening for nutritional disorder R63.4 Abnormal weight loss B37.0 Candidal stomatitis E87.6 Hypokalemia A41.51 Sepsis due to Escherichia coli [E. coli] Office Visit 11/23/2015 3:45p Ashley Kendrick F11.21 Opioid dependence, in MD Rosie remission F33.1 Major depressive disorder, recurrent, moderate K21.0 Gastro-esophageal reflux disease with esophagitis F17.210 Nicotine dependence, cigarettes, uncomplicated M54.2 Cervicalgia Plan of Treatment Future Appointment(s):01/28/2019 3:45 pm - Ashley Felix MD at [id number] - Ashley Felix MDF11.21 Opioid dependence, in remissionFollow up: 3.5 mosI10 Essential (primary) unsplesaejeoL80.25 Body mass index (BMI) 25.0- 25.9, adult
--- NOTE | 2018-11-02 10:57 | UC ---
Respiratory Complaint HPI - HPI Summary HPI Summary: 48 yo female presents with cough for the last 4 days that has been intermittently productive. She has not been taking anything OTC for her symptoms , but she does have an albuterol inhaler that she has been using with mild relief. She also has a nebulizer at home, but has not used this in "ages". She denies fever, chills, sinus symptoms, SOB, chest pain. She is still smoking daily. - History of Current Complaint Stated Complaint: COUGH CONGESTION Time Seen by Provider: 11/02/18 10:56 Hx Obtained From: Patient Hx Last Menstrual Period: ENDOMETRIAL ABLATION Onset/Duration: Gradual Onset Timing: Constant Severity Initially: Mild Severity Currently: Moderate Pain Intensity: 3 Pain Scale Used: 0-10 Numeric Character: Cough: Nonproductive - Allergies/Home Medications Allergies/Adverse Reactions: Allergies Allergy/AdvReac Type Severity Reaction Status Date / Time No Known Allergies Allergy Verified 11/02/18 11:00 PMH/Surg Hx/FS Hx/Imm Hx Respiratory History: Asthma GI/ History: Gastroesophageal Reflux Psychological History: Anxiety, Depression Other History Of: Negative For: HIV, Hepatitis B, Hepatitis C - Surgical History Surgical History: Yes Surgery Procedure, Year, and Place: LUMBAR FUSION 2006 [facility]. eye surgery at age 15 for detached retina. BILAT SALPINGETOMY 2004 [facility] [place]. RIGHT OOPHERECTOMY 2008 [facility]. RIGHT hand surgery x2. Ablation - Family History Known Family History: Positive: Other - Pt denies family history of cardiac, renal disease. Pos colon cancer. Negative: Cardiac Disease, Renal Disease Family History: Noncontributory - Social History Lives: With Family Alcohol Use: Rare Substance Use Type: None Substance Use Comment - Amount & Last Used: PT ON SUBOXONE Smoking Status (MU): Heavy Every Day Tobacco Smoker Type: Cigarettes Amount Used/How Often: 1 ppd Length of Time of Smoking/Using Tobacco: 20 YRS Have You Smoked in the Last Year: Yes When Did the Patient Quit Smoking/Using Tobacco: 09/08 Review of Systems All Other Systems Reviewed And Are Negative: Yes Constitutional: Positive: Negative Skin: Positive: Negative Eyes: Positive: Negative ENT: Positive: Sore Throat Respiratory: Positive: Cough Cardiovascular: Positive: Negative Gastrointestinal: Positive: Negative Physical Exam - Summary Physical Exam Summary: GENERAL: NAD. WDWN. No pain distress. SKIN: No rashes, sores, lesions, or open wounds. HEENT: Head: AT/NC Eyes: Conjunctiva clear without inflammation or discharge. Ears: Hearing grossly normal. TMs intact, no bulging, erythema, or edema. Nose: Nasal mucosa pink and moist. NTTP maxillary and frontal sinus. Throat: Posterior oropharynx without exudates, erythema, or tonsillar enlargement. Uvula midline. NECK: Supple. Nontender. No lymphadenopathy. CHEST: Mild wheezing throughout. No r/r. No accessory muscle use. Breathing comfortably and in no distress. CV: RRR. Without m/r/g. Pulses intact. Cap refill <2seconds NEURO: Alert. PSYCH: Age appropriate behavior. Triage Information Reviewed: Yes Vital Signs: Vital Signs: Temp Pulse Resp BP Pulse Ox 99.6 F 71 18 179/86 97 11/02/18 10:56 11/02/18 10:56 11/02/18 10:56 11/02/18 10:56 11/02/18 10:56 Vital Signs Reviewed: Yes Respiratory Course/Dx - Course Course Of Treatment: CXR: IMPRESSION: NO EVIDENCE FOR ACUTE FINDING. Duoneb: Good improvement s/p. Less wheezing and easier to take a deep breath. Suspect bronchitis. Rx for zpak and prednisone. Advised to cut back smoking. - Differential Dx/Diagnosis Provider Diagnosis: Bronchitis Discharge - Sign-Out/Discharge Documenting (check all that apply): Patient Departure All imaging exams completed and their final reports reviewed: Yes - Discharge Plan Condition: Stable Disposition: HOME Prescriptions: Azithromycin TAB* [Zithromax TAB (Z-TRACE) 250 mg #6 tabs] 2 tab PO .TODAY, THEN 1 DAILY #1 trace predniSONE TAB* [Deltasone 20 MG TAB*] 40 mg PO DAILY #10 tab Patient Education Materials: Acute Bronchitis (ED) Referrals: Ashley Martin MD [Primary Care Provider] - Additional Instructions: If you develop a fever, shortness of breath, chest pain, new or worsening symptoms - please call your PCP or go to the ED immediately. Your blood pressure was high at todays visit. Please see your primary provider within 4 weeks for recheck and re-evaluation. - Billing Disposition and Condition Condition: STABLE Disposition: Home
[2018-11-02 11:00] VITALS: BP 179/86
[2018-11-02] MEDS ORDERED: Albuterol/Ipratropium NEB.SOL* Albuterol 2.5 MG/Ipratropium 0.5 MG 3 ML INH ONE (11:07)
== END 2018-11-02 11:42 | disposition home or self-care (01) ==
LOC: UCEAST 10:31
DX: J40 Bronchitis, not specified as acute or chronic (principal); K21.9 Gastro-esophageal reflux disease without esophagitis; F41.9 Anxiety disorder, unspecified; F32.9 Major depressive disorder, single episode, unspecified; F17.210 Nicotine dependence, cigarettes, uncomplicated; Z98.1 Arthrodesis status
CPT/HCPCS: 71046; 99212; A9270-GY; G0463

== ENCOUNTER 2019-01-01 10:23 | Emergency (ER) | payer BC ==
[2019-01-01 11:05] VITALS: BP 137/88
[2019-01-01] MEDS ORDERED: Albuterol/Ipratropium NEB.SOL* Albuterol 2.5 MG/Ipratropium 0.5 MG 3 ML INH ONE (11:09)
--- NOTE | 2019-01-01 11:13 | UC ---
Respiratory Complaint HPI - HPI Summary HPI Summary: 48-year-old smoker who has had cold symptoms with head congestion over the past week and now with wheezing and lung congestion. She occasionally has a productive cough. She denies any shortness of breath no fever or chills. No history of asthma or COPD. - History of Current Complaint Chief Complaint: UCGeneralIllness Stated Complaint: COUGH Time Seen by Provider: 01/01/19 11:05 Hx Obtained From: Patient Hx Last Menstrual Period: ENDOMETRIAL ABLATION ?: No Onset/Duration: Gradual Onset Timing: Intermittent Episodes Severity Initially: Mild Severity Currently: Moderate Pain Intensity: 0 Character: Cough: Productive Aggravating Factors: Nothing Alleviating Factors: Nothing Associated Signs And Symptoms: Positive: Wheezing, URI, Nasal Congestion, Sinus Discomfort - Allergies/Home Medications Allergies/Adverse Reactions: Allergies Allergy/AdvReac Type Severity Reaction Status Date / Time No Known Allergies Allergy Verified 01/01/19 10:58 Home Medications: Home Medications D-Methorphan/PE/Acetaminophen [Cold Multi-Symptom Daytim] 1 tab PO ONCE [History Confirmed 01/01/19] PMH/Surg Hx/FS Hx/Imm Hx Previously Healthy: Yes Psychological History: Anxiety Other History Of: Negative For: HIV, Hepatitis B, Hepatitis C - Surgical History Surgical History: Yes Surgery Procedure, Year, and Place: LUMBAR FUSION 2006 [facility]. eye surgery at age 15 for detached retina. BILAT SAL[place]OM[place] [facility] [place] [facility] 2007 [facility]. RIGHT hand surgery x2 2016. uterine Ablation 2006 - Family History Known Family History: Positive: Other - Pt denies family history of cardiac, renal disease. Pos colon cancer. Negative: Cardiac Disease, Renal Disease Family History: Noncontributory - Social History Occupation: Employed Full-time Alcohol Use: Rare Substance Use Type: None Substance Use Comment - Amount & Last Used: PT ON SUBOXONE Smoking Status (MU): Heavy Every Day Tobacco Smoker Type: Cigarettes Amount Used/How Often: 1 ppd Length of Time of Smoking/Using Tobacco: 20 YRS Have You Smoked in the Last Year: Yes When Did the Patient Quit Smoking/Using Tobacco: 09/08 Review of Systems All Other Systems Reviewed And Are Negative: Yes ENT: Positive: Sore Throat - Mildly scratchy throat., Ear Ache - Left earache., Nasal Discharge, Sinus Congestion, Sinus Pain/Tenderness Respiratory: Positive: Cough - Occasionally productive cough. Occasional wheezing with coughing. Is Patient Immunocompromised?: No Physical Exam Triage Information Reviewed: Yes Appearance: Well-Appearing, No Pain Distress, Well-Nourished Vital Signs: Initial Vital Signs Temp 99.6 F 01/01/19 11:00 Pulse 73 01/01/19 11:00 Resp 16 01/01/19 11:00 BP 137/88 01/01/19 11:00 Pulse Ox 97 01/01/19 11:00 Vital Signs Reviewed: Yes Eyes: Positive: Conjunctiva Clear ENT: Positive: Hearing grossly normal, Pharynx normal, Nasal drainage - Clear nasal coryza., TMs normal, Sinus tenderness - Mildly tender over the maxillary sinuses bilaterally., Uvula midline Neck: Positive: Supple, Nontender, No Lymphadenopathy Respiratory: Positive: No respiratory distress, No accessory muscle use, Rhonchi - Rhonchi in the left lower lobe posteriorly., Wheezing - Scattered x- ray wheezing. Cardiovascular: Positive: RRR, No Murmur, Pulses Normal, Brisk Capillary Refill Abdomen Description: Positive: Nontender, No Organomegaly, Soft. Negative: CVA Tenderness (R), CVA Tenderness (L), Hepatomegaly, Splenomegaly Bowel Sounds: Positive: Present Musculoskeletal Exam: Normal Neurological Exam: Normal Psychological Exam: Normal Skin Exam: Normal Respiratory Course/Dx - Course Course Of Treatment: Chest x-ray:FINDINGS: The heart is within normal limits in size. Mediastinal and hilar contours appear within normal limits. There is a small peripheral area of increased density which projects over the right upper lobe toward the lung apex which is unchanged from prior studies. The lungs are otherwise clear. No pleural effusion is seen. IMPRESSION: NO EVIDENCE FOR ACTIVE CARDIOPULMONARY DISEASE. DuoNeb treatment: The patient felt like she was taking a better breath and there is decreased wheezing throughout all lung melendez. - Differential Dx/Diagnosis Provider Diagnosis: Bronchitis, Sinusitis Discharge ED - Sign-Out/Discharge Documenting (check all that apply): Patient Departure All imaging exams completed and their final reports reviewed: Yes - Discharge Plan Condition: Good Disposition: HOME Prescriptions: Albuterol HFA INHALER* [Ventolin HFA Inhaler*] 2 puff INH Q4H PRN 5 Days #1 mdi PRN Reason: Wheezing DOXYcycline CAP(*) [DOXYcycline 100MG CAP(*)] 100 mg PO BID 10 Days #20 cap predniSONE TAB* [Deltasone 10 MG TAB*] 10 mg PO DAILY 12 Days #30 tab Patient Education Materials: Acute Bronchitis (ED) Referrals: Ashley Martin MD [Primary Care Provider] - Additional Instructions: Increase fluids, stop smoking. No dairy products, antacids or multivitamins 2 hours before you take doxycycline and 2 hours after and however he wants take it with food because it can cause an upset stomach. Use your albuterol inhaler 2 puffs every 4-6 hours as needed for wheezing. Go to the emergency room if you develop any worsening symptoms, shortness breath, chest pain. Take the prednisone with food. Definite follow-up with your primary care provider later in the week if you start running a fever or have no improvement. - Billing Disposition and Condition Condition: GOOD Disposition: Home
== END 2019-01-01 11:55 | disposition home or self-care (01) ==
LOC: UCEAST 10:23
DX: J40 Bronchitis, not specified as acute or chronic (principal); J32.9 Chronic sinusitis, unspecified; F17.210 Nicotine dependence, cigarettes, uncomplicated
CPT/HCPCS: 71046; 99212; A9270-GY; G0463

== ENCOUNTER 2019-06-09 11:37 | Emergency (ER) | payer BC ==
--- OUTSIDE RECORDS SUMMARY | 2019-06-09 13:43 | XMS REPORT | Continuity of Care Document ---
:1970 External Reference #:[id number] Author Name Ashley Felix MD Address [address] [place] [id number] Problems Active Problems Provider Date Peptic reflux disease Ashley Felix MD Onset: 11/23/2015 Moderate recurrent major depression Ashley Felix MD Onset: 07/13/2016 Opioid dependence in remission Ashley Felix MD Onset: 07/13/2016 Essential hypertension Ashley Felix MD Onset: 01/28/2019 Social History Type Date Description Comments Sex Unknown Tobacco Use Start: Unknown Patient is a current smoker, smokes every day Smoking Status Reviewed: 06/04/19 Patient is a current smoker, smokes every day Allergies, Adverse Reactions, Alerts Description No Known Drug Allergies Medications Active Medications SIG Qnty Indications Ordering Date Provider Bup[facility]orph[facility] 1 sl twice a day [facility] Hydrochloride/Naloxon genia: [id number] Ashley Velez MD e Hydrochloride 8-2mg Film Bupropion take 1 tablet by 30tabs F33.1 [facility], 06/[facility]2018 Hydrochloride ER (XL) mouth once daily Ashley Velez MD 300mg Tablets ER 24HR Amlodipine Besylate take 1 tablet by 30tabs I10 Isidro, 05/14/2018 5mg mouth once daily Ashley Velez MD Tablets Escitalopram Oxalate take 1 tablet by 30tabs F33.1 Isidro, 04/10/2018 mouth once daily Ashley Velez MD 20mg Tablets Ventolin HFA inhale 2 puffs by 8gm R05 Isidro, 11/13/2017 mouth 4 times Ashley Velez MD 108(90Base) mcg/Act daily as needed Aerosol Omeprazole take 1 capsule by 30caps K21.0 Isidro, 02/14/2017 20mg mouth once daily Ashley Velez MD Capsules DR Sumatriptan Succinate take 1 tablet by 30tabs R51 [facility], 02/14/2017 mouth at earliest Ashley Velez MD 50mg Tablets onset of headache, may repeat 1 time after 2 hours Narcan as needed 2units F11.21 [facility], 07/13/2016 4mg/0.1ML Liquid intranasal for Ashley Velez MD emergency overdose only Tizanidine HCL take 1 to 2 90tabs M54.5 [facility], 07/13/2016 2mg tablets by mouth Ashley Velez MD Tablets three times daily as needed Chantix Continuing use as directed on 56tabs F17.210 [facility], 02/29/2016 Month Emeterio package Ashley Velez MD 1mg Tablets Medications Administered in Office Medication SIG Qnty Indications Ordering Provider Date PPD Injection Faustina Loera PA 02/10/2016 Immunizations CPT Code Status Date Vaccine Lot # [id number] Given 12/24/2018 Influenza Vac, Quadrivalent, Split, 0.5mL Dosage, Im Use 95783 Given 02/06/2018 Tdap (Adacel) Ages 7 And Above Only [id number] Given 12/14/2017 Influenza Vac, Quadrivalent, Split, 0.5mL Dosage, Im Use 72900 Given 12/10/2017 Influenza Vac, Quadrivalent, Split, 0.5mL Dosage, Im Use 49506 Given 12/19/2016 Influenza Vac, Quadrivalent, Split, 0.5mL Dosage, Im Use 07166 Given 02/07/2016 Influenza Vac, Quadrivalent, Split, 0.5mL Dosage, Im Use 07669 Given 03/27/2007 Tetanus And Diptheria Toxoid 7 Years And Older Preserv Free Vital Signs Date Vital Result Comment 06/04/2019 2:19pm Weight 164.00 lb Heart Rate 64 /min BP Systolic 122 mmHg BP Diastolic 78 mmHg Height 66 inches 5'6" BMI (Body Mass Index) 26.5 kg/m2 01/28/2019 3:49pm Weight 165.00 lb Heart Rate 76 /min BP Systolic 140 mmHg BP Diastolic 82 mmHg Height 66 inches 5'6" BMI (Body Mass Index) 26.6 kg/m2 Results Description No Information Available Procedures Date Code Description Status 08/15/2017 [id number] Mammogram Completed 08/08/2016 [id number] Mammogram Completed Medical Devices Description No Information Available Encounters Type Date Location Provider Dx Diagnosis Office Visit 01/28/2019 Chantal Ashley Felix I10 Essential (primary) 3:45p MD Rosie hypertension F11.21 Opioid dependence, in remission F33.1 Major depressive disorder, recurrent, moderate K21.0 Gastro-esophageal reflux disease with esophagitis F17.210 Nicotine dependence, cigarettes, uncomplicated M54.5 Low back pain Z68.26 Body mass index (BMI) 26.0-26.9, adult Assessments Date Code Description Provider 06/04/2019 Z00.01 Encounter for general adult medical Ashley Felix MD examination with abnormal findings 06/04/2019 F11.21 Opioid dependence, in remission Ashley Felix MD 06/04/2019 F33.1 Major depressive disorder, recurrent, Ashley Felix MD moderate 06/04/2019 I10 Essential (primary) hypertension Ashley Felix MD 06/04/2019 K21.0 Gastro-esophageal reflux disease with Ashley Felix MD esophagitis 06/04/2019 F17.210 Nicotine dependence, cigarettes, Ashley Felix MD uncomplicated 06/04/2019 M54.5 Low back pain Ashley Felix MD 06/04/2019 Z68.26 Body mass index (BMI) 26.0-26.9, adult Ashley Felix MD 01/28/2019 I10 Essential (primary) hypertension Ashley Felix MD 01/28/2019 F11.21 Opioid dependence, in remission Ashley Felix MD 01/28/2019 F33.1 Major depressive disorder, recurrent, Ashley Felix MD moderate 01/28/2019 K21.0 Gastro-esophageal reflux disease with Ashley Felix MD esophagitis 01/28/2019 F17.210 Nicotine dependence, cigarettes, Ashley Felix MD uncomplicated 01/28/2019 M54.5 Low back pain Aslhey Felix MD 01/28/2019 Z68.26 Body mass index (BMI) 26.0-26.9, adult Ashley Felix MD Plan of Treatment 06/04/2019 - Ashley Felix MDZ00.01 Encounter for general adult medical examination with abnormal mzbrsrpuB76.21 Opioid dependence, in remissionFollow up:4 mosF33.1 Major depressive disorder, recurrent, [id number] Essential ( primary) sbfccbcavlqtX39.0 Gastro-esophageal reflux disease with wrippnxfpzxO37.210 Nicotine dependence, cigarettes, skcsectxcxjugP65.5 Low back painZ68.26 Body mass index (BMI) 26.0-26.9, adult Functional Status Description No Information Available Mental Status Description No Information Available Referrals Description No Information Available
[2019-06-09 13:59] VITALS: BP 150/94
--- NOTE | 2019-06-09 14:11 | UC ---
Eye Complaint HPI - HPI Summary HPI Summary: 48 y/o female presents to the urgent care c/o left eye red swollen and painful at touch since yesterday. Pt noticed this morning mild yellowish crusting eye discharge. Pt states pain is mild 4/10 and lower eyelid is swollen. Pt denies fever, LANDEROS, photophobia, blurred vision, dizziness, SOB, chest pain, abdominal pain,N/V/D. - History of Current Complaint Chief Complaint: UCEye Stated Complaint: EYE ISSUE Time Seen by Provider: 06/09/19 14:01 Hx Obtained From: Patient Hx Last Menstrual Period: abalsion Onset/Duration: Gradual Onset, Lasting Days - 3 days, Still Present, Worse Since - this morning Timing: Constant Severity Initially: Mild Severity Currently: Mild Pain Intensity: 4 - RT lower eyelid Location of Injury: Conjunctiva - LF eye redness mild, Eye Lid (lower) - Left lower eye lid mild pain and swelling Character: Foreign Body Sensation Aggravating Factor(s): Blinking Associated Signs And Symptoms: Positive: Drainage (Clear), Swelling - left lower eyelid. Negative: Photophobia, Vision Impairment Bilateral, Fever - Risk Factors Penetrating Injury Risk Factor: Negative Globe Rupture Risk Factors: Negative Acute Glaucoma Risk Factors: Negative Optic Artery Occlusion Risk Factors: Negative - Allergies/Home Medications Allergies/Adverse Reactions: Allergies Allergy/AdvReac Type Severity Reaction Status Date / Time No Known Allergies Allergy Verified 06/09/19 13:59 Home Medications: Home Medications Buprenorp/Nalox 8-2 MG SL TAB [Suboxone 8-2 mg SL TAB*] 2 mg SL BID 01/20/12 [ History Confirmed 06/09/19] Escitalopram * [Lexapro 5 mg (NF)] 20 mg PO QAM 01/20/12 [History Confirmed ] Wellbutrin Xl 300 mg PO QAM 10/22/13 [History Confirmed 01/01/19] Omeprazole [Prilosec] 20 mg PO QAM 04/17/15 [History Confirmed 06/09/19] Albuterol HFA INHALER* [Ventolin HFA Inhaler*] 2 puff INH Q4H PRN 5 Days #1 mdi 01/01/19 [Rx Confirmed 06/09/19] Erythromycin OPTH OINT* [Erythromycin 0.5% OPTH OINT*] 1 applic LEFT EYE TID #1 ophth.oint 06/09/19 [Rx] PMH/Surg Hx/FS Hx/Imm Hx Previously Healthy: Yes Cardiovascular History: Hypertension GI/ History: Gastroesophageal Reflux Psychological History: Anxiety, Depression Other History Of: Negative For: HIV, Hepatitis B, Hepatitis C - Surgical History Surgical History: Yes Surgery Procedure, Year, and Place: LUMBAR FUSION 2006 [place]. eye surgery at age 15 for detached retina. [place] [facility] [place] [facility] 2007 [facility]. RIGHT hand surgery x2 2016. uterine Ablation 2006 - Family History Known Family History: Positive: None - Pt denies FMHX, Other - Pt denies family history of cardiac, renal disease. Pos colon cancer. Negative: Cardiac Disease, Renal Disease Family History: Noncontributory - Social History Occupation: Employed Full-time Lives: With Family Alcohol Use: Rare Substance Use Type: None Substance Use Comment - Amount & Last Used: PT ON SUBOXONE Smoking Status (MU): Heavy Every Day Tobacco Smoker Type: Cigarettes Amount Used/How Often: 1 ppd Length of Time of Smoking/Using Tobacco: 20 YRS Have You Smoked in the Last Year: Yes When Did the Patient Quit Smoking/Using Tobacco: 09/08 Review of Systems All Other Systems Reviewed And Are Negative: Yes Constitutional: Positive: Negative Skin: Positive: Negative Eyes: Positive: Drainage - cler, Eye Redness - left eye and left lower eyelid swollen. Negative: Blurred Vision, Photophobia ENT: Positive: Negative Respiratory: Positive: Negative Cardiovascular: Positive: Negative Gastrointestinal: Positive: Negative Genitourinary: Positive: Negative Motor: Positive: Negative Neurovascular: Positive: Negative Musculoskeletal: Positive: Negative Neurological/Mental Status: Positive: Negative Psychological: Positive: Negative Is Patient Immunocompromised?: No Physical Exam - Summary Physical Exam Summary: Vital Signs Reviewed: Yes General: Well appearing, well nourished female in no apparent pain distress Eyes: Positive: LF Conjunctiva Inflamed - Visual acuity: WNL,Visual melendez: full to confrontation.mild periorbital soft tissue swelling at the LF lower eyelid with erythema and discrete white small pustule in the medial side of eyelid, tender to palpation. PERRLA, EOMI intact w/out limitation or complaint of pain. eyelashes clear. mild tearing and yellowish drainage observed. No ciliary flush. No chemosis, No photophobia. Normal fundoscopic exam; no proptosis, exophthalmos, nystagmus. ENT: Positive: Normal ENT inspection, Hearing grossly normal, Pharynx normal, Nasal congestion, Nasal drainage - clear, TMs normal - B/L external ear canal clear , TM's WNL. Negative: Tonsillar swelling, Tonsillar exudate Neck: Positive: Supple, Nontender, No Lymphadenopathy Respiratory: Positive: Chest nontender, Lungs clear, Normal breath sounds, No respiratory distress Cardiovascular: Positive: RRR, No Murmur, Pulses Normal, Brisk Capillary Refill Abdomen Description: Positive: Nontender, No Organomegaly, Soft. Negative: CVA Tenderness (R), CVA Tenderness (L) Bowel Sounds: Positive: Present Musculoskeletal: Positive: Strength Intact, ROM Intact, No Edema Neurological Exam: Normal Psychological Exam: Normal Skin Exam: Normal Triage Information Reviewed: Yes Vital Signs: Initial Vital Signs Temp 98 F 06/09/19 13:56 Pulse 78 06/09/19 13:56 Resp 17 06/09/19 13:56 BP 150/94 06/09/19 13:56 Pulse Ox 99 06/09/19 13:56 Eye Complaint Course/Dx - Course Course Of Treatment: 48 y/o female presents to the urgent care c/o left eye red swollen and painful at touch since yesterday. Pt noticed this morning mild yellowish crusting eye discharge. Pt states pain is mild 4/10 and lower eyelid is swollen. Pt denies fever, LANDEROS, photophobia, blurred vision, dizziness, SOB, chest pain, abdominal pain,N/V/D. Hx obtained. Pt with a LF lower eyelid internal hordeolum on examination. Pt Rx erythromycin Ophthalmic Ointment. PT advised to apply warm compresses and massage the eye with gentle pressure 4-5 times for 10-15min throughout the day. 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 Pt 's BP is elevated today and advised to decrease salt in diet, monitor BP and f/ u with PCP if BP continues to be elevated for further management. Pt understood and agreed with plan of care. - Differential Dx/Diagnosis Differential Diagnosis/HQI/PQRI: Conjunctivitis, Corneal Abrasion, Foreign Body , Penetrating Injury, Periorbital Cellulitis, Orbital Cellulitis Provider Diagnosis: Hordeolum internum left lower eyelid, Uncontrolled hypertension Discharge ED - Sign-Out/Discharge Documenting (check all that apply): Patient Departure - D/C home All imaging exams completed and their final reports reviewed: No Studies - Discharge Plan Condition: Stable Disposition: HOME Prescriptions: Erythromycin OPTH OINT* [Erythromycin 0.5% OPTH OINT*] 1 applic LEFT EYE TID #1 ophth.oint Patient Education Materials: [facility] (ED) Forms: *Work Release Referrals: Ashley Martin MD [Primary Care Provider] - 3 Days Shalom Rdz MD [Medical Doctor] - If Needed Additional Instructions: 1-Please apply Erythromycin ophthalmic ointment in your Left lower eyelid as directed. Please apply warm compresses and massage the eye with gentle pressure 4-5 times for 10-15min throughout the day . 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 - Billing Disposition and Condition Condition: STABLE Disposition: Home
== END 2019-06-09 14:30 | disposition home or self-care (01) ==
LOC: UCEAST 11:37
DX: H00.025 Hordeolum internum left lower eyelid (principal); I10 Essential (primary) hypertension; K21.9 Gastro-esophageal reflux disease without esophagitis; F41.8 Other specified anxiety disorders; F17.210 Nicotine dependence, cigarettes, uncomplicated; Z79.899 Other long term (current) drug therapy
CPT/HCPCS: 99212; G0463